=== PATIENT | female | born 1960 | race Caucasian/White ===

== ENCOUNTER 2016-12-13 16:02 | Emergency (ER) | payer BC ==
[2016-12-13 16:17] VITALS: BP 134/78
[2016-12-13] MEDS ORDERED: Orphenadrine 100 MG Tab.ER PO STA (17:23)
--- NOTE | 2016-12-13 17:31 | EDM.PDOC ---
ED HPI GENERAL MEDICAL PROBLEM - General Chief Complaint: Back Pain or Injury Stated Complaint: BACK PAIN Time Seen by Provider: 12/13/16 16:17 Source of Information: Reports: Patient, Family (), RN Notes Reviewed History Limitations: Reports: No Limitations - History of Present Illness INITIAL COMMENTS - FREE TEXT/NARRATIVE: The patient states that she developed left flank pain, crampy and sharp in character, this past Thursday evening, 12/10/2016, after she lifted some heavy items earlier that day. The pain was relatively mild initially, but today got worse. It is made worse with standing, moving, walking, and deep breaths. It feels better if the patient remains still, but does not resolve completely. No recent fever. No recent urinary symptoms or gross hematuria. No prior similar symptoms, and no prior back injury. The patient's PCP is Dr. Phelps. Treatments COAT FINISHER: Reports: Acetaminophen, Other (see below) Other Treatments COAT FINISHER: flexeril Left Middle Back Pain Score (Numeric/FACES): 10 - Related Data Allergies Allergy/AdvReac Type Severity Reaction Status Date / Time metformin Allergy Swelling Verified 12/13/16 16:17 Home Meds: Home Meds Citalopram [Celexa] 20 mg PO DAILY 12/13/16 [History] Cyclobenzaprine [Flexeril] 5 mg PO Q4H PRN 12/13/16 [History] Dapagliflozin Propanediol [Farxiga] 10 mg PO DAILY 12/13/16 [History] Liraglutide [Victoza] 1.8 mg SQ DAILY 12/13/16 [History] Orphenadrine [Norflex] 1 tab PO Q12H #20 tab.er 12/13/16 [Rx] Rosuvastatin [Crestor] 10 mg PO DAILY 12/13/16 [History] Past Medical History Cardiovascular History: Reports: High Cholesterol Musculoskeletal History: Reports: Arthritis Psychiatric History: Reports: Anxiety, Depression Endocrine/Metabolic History: Reports: Diabetes, Type II - Past Surgical History GI Surgical History: Reports: Appendectomy Female Surgical History: Reports: Hysterectomy Social & Family History - Family History Family Medical History: Noncontributory - Tobacco Use Smoking Status *Q: Current Every Day Smoker Years of Tobacco use: 36 Packs/Tins Daily: 0.8 - Alcohol Use Alcohol Use History: Yes Alcohol Use Frequency: Socially - Recreational Drug Use Recreational Drug Use: No - Living Situation & Occupation Living situation: Reports: , with Spouse, with Family (Son) Occupation: Unemployed ED ROS GENERAL - Review of Systems Review Of Systems: See Below Constitutional: Reports: No Symptoms HEENT: Reports: No Symptoms Respiratory: Reports: No Symptoms Cardiovascular: Reports: No Symptoms Endocrine: Reports: No Symptoms GI/Abdominal: Reports: No Symptoms : Reports: No Symptoms Musculoskeletal: Reports: No Symptoms Skin: Reports: No Symptoms Neurological: Reports: No Symptoms Psychiatric: Reports: No Symptoms Hematologic/Lymphatic: Reports: No Symptoms Immunologic: Reports: No Symptoms ED EXAM,LOWER BACK PAIN/INJURY - Physical Exam Exam: See Below Exam Limited By: No Limitations General Appearance: Alert, WD/WN, No Apparent Distress, Anxious Eye Exam: Bilateral Eye: Normal Inspection Ears: Normal External Exam, Hearing Grossly Normal Nose: Normal Inspection, No Blood Throat/Mouth: Normal Inspection, Normal Lips, Normal Voice, No Airway Compromise Head: Atraumatic, Normocephalic Neck: Normal Inspection, Full Range of Motion Respiratory/Chest: No Respiratory Distress, Lungs Clear, Normal Breath Sounds, No Accessory Muscle Use. No: Crackles, Rhonchi, Wheezing Cardiovascular: Normal Peripheral Pulses, Regular Rate, Rhythm, No Gallop, No JVD, No Murmur, No Rub GI/Abdominal: Normal Bowel Sounds, Soft, Non-Tender, No Organomegaly, No Distention, No Abnormal Bruit, No Mass (Female) Exam: Deferred Rectal (Female) Exam: Deferred Back Exam: Normal Inspection, Muscle Spasm (Left flank area. Nontender elsewhere.) Extremities: Normal Inspection, Normal Range of Motion, No Pedal Edema, Normal Capillary Refill Neurological: Alert, No Motor/Sensory Deficits, Oriented x 3 Psychiatric: Normal Affect Skin Exam: Warm, Dry, Intact, Normal Color, No Rash Lymphatic: No Adenopathy Course - Vital Signs Last Recorded V/S: Last Vital Signs Temp 36.0 C 12/13/16 16:14 Pulse 113 H 12/13/16 16:14 Resp 16 12/13/16 16:14 BP 134/78 12/13/16 16:14 Pulse Ox 96 12/13/16 16:14 - Orders/Labs/Meds Labs: Laboratory Tests 12/13/16 Range/Units 16:34 Urine Color Light yellow (Yellow) Urine Appearance Clear (Clear) Urine pH 6.0 (5.0-8.0) Ur Specific [place] 1.015 (1.005-1.030) Urine Protein Negative (Negative) Urine Glucose (UA) 2+ H (Negative) Urine Ketones Negative (Negative) Urine Occult Blood Negative (Negative) Urine Nitrite Negative (Negative) Urine Bilirubin Negative (Negative) Urine Urobilinogen 0.2 (0.2-1.0) Ur Leukocyte Esterase Negative (Negative) Urine RBC 0-5 (0-5) /hpf Urine WBC 0-5 (0-5) /hpf Ur Epithelial Cells 0-5 (0-5) /hpf Urine Bacteria Moderate H (FEW) /hpf Urine Mucus Not seen (FEW) /hpf Meds: Medications Discontinued Medications Generic Name Dose Route Start Last Admin Trade Name Freq PRN Reason Stop Dose Admin Orphenadrine Citrate 100 mg 12/13/16 17:23 12/13/16 17:37 Norflex PO 12/13/16 17:24 100 mg ONETIME STA Administration - Re-Assessments/Exams Free Text/Narrative Re-Assessment/Exam: 12/13/16 17:27 The patient's urinalysis is negative. No blood to suggest a ureterolith. Based on her examination, she is most likely suffering from a muscle spasm. I have ordered Norflex, and will e-prescribe the same. Departure - Departure Time of Disposition: 17:28 Disposition: Home, Self-Care 01 Condition: Good Clinical Impression: Back muscle spasm - Discharge Information Prescriptions: Orphenadrine [Norflex] 1 tab PO Q12H #20 tab.er Instructions: Muscle Cramps and Spasms, [id number] Referrals: Kady Hicks MD [Primary Care Provider] - Forms: ED Department Discharge Additional Instructions: You were seen in the emergency room for left mid-back pain. Workup in the ER included a urinalysis, which was normal. No blood to suggest a kidney stone. Your back pain is MOST LIKELY due to a muscle spasm. You have been started on the muscle relaxant Norflex. Take one tablet every 12 hours, as prescribed. You may also take [id number] ibuprofen, 2-3 tablets (400-600 mg) every 8 hours, with food, as needed for discomfort. If you take Norflex, DO NOT also take Flexeril. It is important that you stay active, even if activity causes discomfort. Follow-up with your PCP, Dr. Phelps, as needed. If any other problems, please do not hesitate to return to the ER.
== END 2016-12-13 17:42 | disposition home or self-care (01) ==
LOC: JD.ED 16:02
DX: M62.830 Muscle spasm of back (principal); F41.9 Anxiety disorder, unspecified; F32.9 Major depressive disorder, single episode, unspecified; E78.00 Pure hypercholesterolemia, unspecified; M19.90 Unspecified osteoarthritis, unspecified site; E11.9 Type 2 diabetes mellitus without complications; F17.210 Nicotine dependence, cigarettes, uncomplicated; Z90.49 Acquired absence of other specified parts of digestive tract; Z90.710 Acquired absence of both cervix and uterus; Z88.8 Allergy status to other drugs, medicaments and biological substances; Z79.899 Other long term (current) drug therapy
CPT/HCPCS: 81001; 99283; A9270

== ENCOUNTER 2019-05-13 20:40 | Emergency (ER) | payer BC, OTHER ==
[2019-05-13 20:48] VITALS: BP 149/83; PULSE 91
--- NOTE | 2019-05-13 20:51 | EDM.PDOC ---
ED HPI GENERAL MEDICAL PROBLEM - General Chief Complaint: Gastrointestinal Problem Stated Complaint: [facility] Time Seen by Provider: 05/13/19 20:50 Source of Information: Reports: Patient, RN Notes Reviewed History Limitations: Reports: No Limitations - History of Present Illness INITIAL COMMENTS - FREE TEXT/NARRATIVE: Patient is a 58-year-old female who is brought to the ER via [place] [facility] for the evaluation of being dizzy and nauseous. Patient notes that she was drinking at a bar in [place], she drank 3 or 4 beers, and had about 4-5 shots of Earl whiskey. She notes that she does go to the bar from time to time, but the whiskey was new for her tonight. She states that shortly after the shots of whiskey she began to feel hot/sweaty, nauseous, and developed tingling into her fingers. She notes that she did vomit twice at the bar. She states that she does have diabetes, and problems with cholesterol, otherwise she has no other past medical history. She believes that her diabetes is under good control. Patient denies any food allergies. Her primary care provider is Dr. Phelps. - Related Data Allergies Allergy/AdvReac Type Severity Reaction Status Date / Time metformin Allergy Swelling Verified 05/13/19 20:46 Home Meds: Home Meds Citalopram [Celexa] 20 mg PO DAILY 12/13/16 [History] Cyclobenzaprine [Flexeril] 5 mg PO Q4H PRN 12/13/16 [History] Dapagliflozin Propanediol [Farxiga] 10 mg PO DAILY 12/13/16 [History] Liraglutide [Victoza] 1.8 mg SQ DAILY 12/13/16 [History] Orphenadrine [Norflex] 1 tab PO Q12H #20 tab.er 12/13/16 [Rx] Rosuvastatin [Crestor] 10 mg PO DAILY 12/13/16 [History] Past Medical History HEENT History: Reports: Impaired Vision Other HEENT History: Wears glasse Cardiovascular History: Reports: High Cholesterol Musculoskeletal History: Reports: Arthritis Other Musculoskeletal History: neck pain Psychiatric History: Reports: Anxiety, Depression Endocrine/Metabolic History: Reports: Diabetes, Type II - Past Surgical History GI Surgical History: Reports: Appendectomy Female Surgical History: Reports: Hysterectomy Social & Family History - Family History Family Medical History: Noncontributory - Tobacco Use Smoking Status *Q: Current Every Day Smoker Years of Tobacco use: 30 Packs/Tins Daily: 1 - Recreational Drug Use Recreational Drug Use: No - Living Situation & Occupation Living situation: Reports: , with Spouse, with Family (Son) Occupation: Unemployed ED ROS GENERAL - Review of Systems Review Of Systems: See Below Constitutional: Reports: Other (felt hot/sweaty). Denies: Fever, Chills Respiratory: Denies: Shortness of Breath Cardiovascular: Denies: Chest Pain GI/Abdominal: Reports: Nausea, Vomiting (emesis x 2). Denies: Abdominal Pain Neurological: Reports: Tingling (into bilateral extremities, gone now). Denies : Dizziness ED EXAM, GI/ABD - Physical Exam Exam: See Below Exam Limited By: No Limitations General Appearance: Alert, WD/WN, No Apparent Distress Eyes: Bilateral: Normal Appearance Throat/Mouth: Normal Inspection, Normal Lips, Normal Teeth, Normal Gums, Normal Oropharynx, Normal Voice, No Airway Compromise Head: Atraumatic, Normocephalic Neck: Normal Inspection Respiratory/Chest: No Respiratory Distress, Lungs Clear, Normal Breath Sounds, No Accessory Muscle Use, Chest Non-Tender Cardiovascular: Normal Peripheral Pulses, Regular Rate, Rhythm, No Edema, No Murmur GI/Abdominal Exam: Normal Bowel Sounds, Soft, Non-Tender, No Distention, No Mass Extremities: Normal Inspection, Normal Capillary Refill Neurological: Alert, Oriented, Normal Cognition, No Motor/Sensory Deficits Psychiatric: Normal Affect, Normal Mood Skin Exam: Warm, Dry, Intact, Normal Color, No Rash Course - Vital Signs Last Recorded V/S: Last Vital Signs Temp 97.0 F 05/13/19 20:46 Pulse 91 05/13/19 20:46 Resp 13 05/13/19 20:46 BP 149/83 H 05/13/19 20:46 Pulse Ox 99 05/13/19 20:46 - Orders/Labs/Meds Orders: Active Orders 24 hr Category Date Time Status Peripheral IV Care [RC] . DIRECTED Care 05/13/19 20:52 Ordered Sodium Chloride 0.9% [Saline Flush] Med 05/13/19 20:52 Ordered 10 ml FLUSH ASDIRECTED PRN Peripheral IV Insertion Adult [OM.PC] Stat Oth 05/13/19 20:51 Ordered Medication Orders Sodium Chloride (Saline Flush) 10 ml FLUSH ASDIRECTED PRN PRN Reason: Keep Vein Open Last Admin: 05/13/19 20:59 Dose: 10 ml Labs: Laboratory Tests 05/13/19 05/13/19 Range/Units 20:57 21:05 WBC 10.27 H (3.98-10.04) K/mm3 RBC 5.06 (3.98-5.22) M/mm3 Hgb 15.7 (11.2-15.7) gm/dl Hct 47.3 H (34.1-44.9) % MCV 93.5 (79.4-94.8) fl MCH 31.0 (25.6-32.2) pg MCHC 33.2 (32.2-35.5) g/dl RDW Std Deviation 43.6 (36.4-46.3) fL Plt Count 296 (182-369) K/mm3 MPV 9.6 (9.4-12.3) fl Neut % (Auto) 81.1 H (34.0-71.1) % Lymph % (Auto) 14.0 L (19.3-51.7) % [place] % (Auto) 4.2 L (4.7-12.5) % Eos % (Auto) 0.1 L (0.7-5.8) Baso % (Auto) 0.3 (0.1-1.2) % Neut # (Auto) 8.33 H (1.56-6.13) K/mm3 Lymph # (Auto) 1.44 (1.18-3.74) K/mm3 [place] # (Auto) 0.43 H (0.24-0.36) K/mm3 Eos # (Auto) 0.01 L (0.04-0.36) K/mm3 Baso # (Auto) 0.03 (0.01-0.08) K/mm3 Manual Slide Review Normal smear Sodium 140 (136-145) mEq/L Potassium 3.6 (3.5-5.1) mEq/L Chloride 104 (98-107) mEq/L Carbon Dioxide 22 (21-32) mEq/L Anion Gap 17.6 H (5-15) BUN 8 (7-18) mg/dL Creatinine 0.8 (0.55-1.02) mg/dL Est Cr Clr Drug Dosing 83.90 mL/min Estimated GFR (MDRD) > 60 (>60) mL/min BUN/Creatinine Ratio 10.0 L (14-18) Glucose 175 H (74-106) mg/dL Calcium 9.2 (8.5-10.1) mg/dL Total Bilirubin 0.3 (0.2-1.0) mg/dL AST 14 L (15-37) U/L ALT 37 (14-59) U/L Alkaline Phosphatase 75 (46-116) U/L Total Protein 8.5 H (6.4-8.2) g/dl Albumin 4.3 (3.4-5.0) g/dl Globulin 4.2 gm/dL Albumin/Globulin Ratio 1.0 (1-2) Ethyl Alcohol 0.06 (0.00) gm% Meds: Medications Generic Name Dose Route Start Last Admin Trade Name Freq PRN Reason Stop Dose Admin Sodium Chloride 10 ml 05/13/19 20:52 05/13/19 20:59 Saline Flush FLUSH 10 ml ASDIRECTED PRN Administration Keep Vein Open Discontinued Medications Generic Name Dose Route Start Last Admin Trade Name Freq PRN Reason Stop Dose Admin Sodium Chloride 1,000 mls @ 999 mls/hr 05/13/19 20:52 05/13/19 20:59 Normal Saline IV 05/13/19 21:52 999 mls/hr ONETIME ONE Administration Ondansetron HCl 4 mg 05/13/19 20:52 05/13/19 20:59 Zofran IVPUSH 05/13/19 20:53 4 mg ONETIME ONE Administration - Re-Assessments/Exams Free Text/Narrative Re-Assessment/Exam: 05/13/19 21:07 Patient presents to the ED for the evaluation of feeling nauseous, and hot and sweaty after drinking whiskey at a bar. The patient notes that she is not normally known to be drinking whiskey. It is likely that she had a reaction to the whiskey, and developed the symptoms. Patient is somewhat tipsy, but not stumbling over drunk at this time. Have ordered CBC, CMP, EtOH level, some IV fluids and 4 mg Zofran for initial management. 05/13/19 21:30 Patient's labs are done, blood alcohol levels 0.06, metabolic panel demonstrates an elevated blood sugar 175, and elevated anion gap at 17.5. The fluids should help with this. No focal abnormalities noted on the CBC as well. Patient will be given the IV fluids, and discharged home with general recommendations. Departure - Departure Time of Disposition: 22:13 Disposition: Home, Self-Care 01 Condition: Fair Clinical Impression: Hot flash not due to menopause, Nausea and vomiting in adult patient, Alcohol use - Discharge Information *PRESCRIPTION DRUG MONITORING PROGRAM REVIEWED*: No *COPY OF PRESCRIPTION DRUG MONITORING REPORT IN PATIENT AMMY: No Instructions: Nausea and Vomiting, Adult, [id number] Forms: ED Department Discharge Additional Instructions: You were evaluated in the ER today regarding your nausea and vomiting, and a hot flash. At this time your laboratory evaluation demonstrates no focal abnormalities, you were mildly dehydrated. Your symptoms are most likely due to an acute reaction to the ingestion of whiskey. You were given some IV fluids and IV nausea medications, this did seem to help give you pretty good relief of symptoms. Please try to increase your oral fluid intake over the weekend, fluids such as Gatorade or Powerade would be a good choice. Please return to the ER at any time if your symptoms change or worsen. Sepsis Event Note - Evaluation Sepsis Screening Result: No Definite Risk - Focused Exam Vital Signs: Vital Signs Temp Pulse Resp BP Pulse Ox 05/13/19 20:46 97.0 F 91 13 149/83 H 99 Date Exam was Performed: 05/13/19 Time Exam was Performed: 22:13 - My Orders Last 24 Hours: My Active Orders 05/13/19 20:51 Peripheral IV Insertion Adult [OM.PC] Stat 05/13/19 20:52 Peripheral IV Care [RC] . DIRECTED Sodium Chloride 0.9% [Saline Flush] 10 ml FLUSH ASDIRECTED PRN - Assessment/Plan Last 24 Hours: My Active Orders 05/13/19 20:51 Peripheral IV Insertion Adult [OM.PC] Stat 05/13/19 20:52 Peripheral IV Care [RC] . DIRECTED Sodium Chloride 0.9% [Saline Flush] 10 ml FLUSH ASDIRECTED PRN
[2019-05-13] MEDS ORDERED: Sodium Chloride 0.9% 1,000 ML IV ONE (20:52)
[2019-05-13] MEDS ORDERED: Sodium Chloride 0.9% 10 ML Syringe FLUSH PRN (20:52)
[2019-05-13] MEDS ORDERED: Ondansetron 4 MG/2 ML SDV IVPUSH ONE (20:52)
== END 2019-05-13 22:27 | disposition home or self-care (01) ==
LOC: JD.ED 20:40
DX: R23.2 Flushing (principal); R11.2 Nausea with vomiting, unspecified; R61 Generalized hyperhidrosis; E78.00 Pure hypercholesterolemia, unspecified; F32.9 Major depressive disorder, single episode, unspecified; E11.65 Type 2 diabetes mellitus with hyperglycemia; F17.210 Nicotine dependence, cigarettes, uncomplicated; Z79.84 Long term (current) use of oral hypoglycemic drugs; Z79.899 Other long term (current) drug therapy; Z88.8 Allergy status to other drugs, medicaments and biological substances; Z72.89 Other problems related to lifestyle
CPT/HCPCS: 36415; 80053; 80320; 85025; 96361; 96374; 99284; J2405; J7030; 99283; G0480